=== PATIENT | male | born 1945 | race African-American/Black ===

== ENCOUNTER 2016-08-11 09:33 | Day surgery (SDC) | payer MEDICARE, BC ==
--- NOTE | ~2016-08-11 | EGD ---
EGD REPORT [facility] [address] [place]. [address] NAME: CM NIEVES : [birth year] STATUS : REG [facility]#: [id number] AGE: 70 ADM/REG DATE : 08/11/16 MR#: [id number] REPORT SERV DATE: 08/11/16 DICTATED BY: DARIAN ARENAS DATE: 08/11/16 REPORT STATUS : Draft TRANSCRIBED BY: [facility] DATE: 08/11/16 Endoscopy Center Patient Name: Cm Nieves Date of : 1945 Attending MD: DARIAN ARENAS MD Procedure Date No Time: 08/11/2016 Procedure: Colonoscopy Indications: High risk colon cancer surveillance: Personal history of colonic polyps, FH of Colon Cancer - 1st degree relative Referring MD: BING KEENAN MD Medicines: as per anesthesia Complications: No immediate complications. Procedure: Pre-Anesthesia Assessment: - ASA Grade Assessment: III - A patient with severe systemic disease. After I obtained informed consent, the scope was passed under direct vision. Throughout the procedure, the patient's blood pressure, pulse, and oxygen saturations were monitored continuously. The PCF [id number] was introduced through the anus and advanced to the cecum, identified by appendiceal orifice and ileocecal valve. The colonoscopy was somewhat difficult due to significant looping and a tortuous colon. The patient tolerated the procedure. The quality of the bowel preparation was fair. Findings: The perianal and digital rectal examinations were normal. Internal hemorrhoids were found during endoscopy and were mild. Impression: - Internal hemorrhoids. Recommendation: - Repeat colonoscopy in 5 years for surveillance. Procedure Code(s): --- Professional --- 65590, Colonoscopy, flexible, proximal to splenic flexure; diagnostic, with or without collection of specimen(s) by brushing or washing, with or without colon decompression (separate procedure) Diagnosis Code(s): --- Professional --- K64.8, Other hemorrhoids Z86.010, Personal history of colonic polyps Z80.0, Family history of malignant neoplasm of digestive organs EGD REPORT [address] [address] NAME: CM NIEVES : [birth year] STATUS : REG [facility] [place] PAT#: [id number] AGE: 70 ADM/REG DATE : 08/11/16 MR#: [id number] REPORT SERV DATE: 08/11/16 DICTATED BY: DARIAN ARENAS. DATE: 08/11/16 REPORT STATUS : Draft TRANSCRIBED BY: [employer] DATE: 08/11/16 CPT copyright 2013 [employer]. All rights reserved. The codes documented in this report are preliminary and upon bowl turner review may be revised to meet current compliance requirements. DARIAN ARENAS MD 08/11/2016 11:10 AM This report has been signed electronically. Number of Addenda: 0 Note Initiated On: 08/11/2016 10:35 AM Scope Withdrawal Time 0 hours 6 minutes 2 seconds
[~2016-08-11 09:33] MED LIST: ASAB PO; BAYER500 MG PO; CASODEX 50 MG T50 MG PO; DOX10 PO; FLOMAX4 PO; FLONASE NAS; LOP100 PO; LOTE20 PO; LOTE40 PO; NEXIUM40 PO; NORV5 PO; PREVALITE4 G1 PO; REMERON30 MG PO; VISINE OP
== END 2016-08-11 23:59 | disposition home or self-care (01) ==
LOC: DMU 09:33
PROVIDERS: Internal Medicine Gastroenterology
PROC: 0DJD8ZZ Inspection of Lower Intestinal Tract, Via Natural or Artificial Opening Endoscopic (ICD-10-PCS; principal; 2016-08-11 10:30)
DX: Z12.11 Encounter for screening for malignant neoplasm of colon (principal); K64.8 Other hemorrhoids; K21.9 Gastro-esophageal reflux disease without esophagitis; I69.951 Hemiplegia and hemiparesis following unspecified cerebrovascular disease affecting right dominant side; I10 Essential (primary) hypertension; G47.33 Obstructive sleep apnea (adult) (pediatric); Z86.010 Personal history of colon polyps; Z80.0 Family history of malignant neoplasm of digestive organs; Z91.040 Latex allergy status; Z79.82 Long term (current) use of aspirin; Z79.899 Other long term (current) drug therapy